=== PATIENT | female | born 1965 | race African-American/Black ===

== ENCOUNTER 2020-08-17 14:08 | Inpatient (IN) | payer BC, OTHER ==
[~2020-08-17] VITALS: Ht 168.9 cm; Wt 124.7 kg
[~2020-08-17 14:08] MED LIST: ATEN50TA PO; B50 PO; DULO60CA44 PO; FLEXERIL PO; FLUT1DIS5 PO; GABA300C PO; HYDR25TA PO; INSU100V28 IJ; LORA5TAB8 PO; MONT10TA21 PO; NOVOLOG FLEX; OXYCONTIN PO; P20 PO; PROAIR; ROFL500T PO; TRAM50TA3 PO; ZOLP5TAB2 PO; [UNRECOGNIZED DRUG - OTHER] TOP
[2020-08-17 16:45] LABS: CHLORIDE 105 mEq/L (98-107)
[2020-08-17 17:14] LABS: EOSINOPHILS % 2.1 % (0.0-5.0); HEMATOCRIT. 35.4 % (36.0-48.0); HEMOGLOBIN. 11.4 g/dL (12.0-16.0); MEAN CORPUSCULAR HEMOGLOBIN 28.9 pg (28.0-32.0); MEAN CORPUSCULAR VOLUME 89.8 fL (81.0-99.0); MEAN PLATELET VOLUME 8.5 fl (7.4-10.4); MONOCYTES % 7.2 % (2.0-8.0); NEUTROPHILS % 49.7 % (40.0-76.0); PLATELET 428 x1000/uL (130-400); RED BLOOD CELL COUNT 3.94 mill/uL (4.2-5.4); RED CELL DISTRIBUTION WIDTH 17.4 % (11.6-14.6)
[2020-08-17] MEDS ORDERED: DIPHENHYDRAMINE 50MG/ML VIAL IM PRN (17:30)
[2020-08-17] MEDS ORDERED: DIPHENHYDRAMINE 50MG CAPSULE PO ONE (17:30)
[2020-08-17] MEDS ORDERED: ONDANSETRON HCL 4MG/2ML INJ IV PRN (18:00)
[2020-08-17] MEDS ORDERED: ACETAMINOPHEN 325MG TABLET PO PRN (18:00)
[2020-08-17] MEDS ORDERED: DOCUSATE SODIUM 100MG CAPSULE PO PRN (18:00)
[2020-08-17] MEDS: ATENOLOL 50 MG TABLET PO SCH (19:30)
[2020-08-17] MEDS: GABAPENTIN 300MG CAPSULE PO SCH (19:30)
[2020-08-17] MEDS: AMLODIPINE 10MG TABLET PO SCH (19:30)
[2020-08-17] MEDS: HYDROCHLOROTHIAZIDE 25MG TABLET PO SCH (19:43)
[2020-08-17] MEDS: MONTELUKAST SODIUM 10MG TABLET PO SCH (19:44)
[2020-08-17 21:40] VITALS: BP 149/93
[2020-08-17 21:45] VITALS: BP 149/93
[2020-08-17] MEDS: ZOLPIDEM TARTRATE 5MG TABLET PO SCH (22:23)
[2020-08-17] MEDS: HYDROMORPHONE HCL/PF 2MG/ML CPJ IV PRN (22:23)
[2020-08-18] VITALS: BP 145/84
[2020-08-18 04:00] VITALS: BP 143/87
[2020-08-18] MEDS ORDERED: DEXTROSE 50% WATER 50ML SYRINGE IV PRN (04:00)
[2020-08-18] MEDS: HYDROMORPHONE HCL/PF 2MG/ML CPJ IV PRN ×4 (04:46→18:32)
[2020-08-18] MEDS: DIPHENHYDRAMINE 50MG/ML VIAL IV PRN ×4 (05:02→20:26)
[2020-08-18] MEDS: INSULIN LISPRO 100 UNITS/ML SUBCUT SCH ×4 (05:48→20:19)
[2020-08-18] MEDS: BLOOD SUGAR DIAGNOSTIC STRIP TEST SCH ×4 (05:48→20:19)
[2020-08-18 07:05] LABS: BASOPHILS % 0.7 % (0.0-2.0); EOSINOPHILS % 2.2 % (0.0-5.0); HEMATOCRIT. 33.1 % (36.0-48.0); MEAN CORPUSCULAR HEMOGLOBIN 29.4 pg (28.0-32.0); MEAN CORPUSCULAR VOLUME 88.9 fL (81.0-99.0); MEAN PLATELET VOLUME 8.8 fl (7.4-10.4); MONOCYTES % 8.2 % (2.0-8.0); NEUTROPHILS % 55.9 % (40.0-76.0); PLATELET 418 x1000/uL (130-400); RED BLOOD CELL COUNT 3.73 mill/uL (4.2-5.4); RED CELL DISTRIBUTION WIDTH 17.2 % (11.6-14.6)
[2020-08-18 07:06] LABS: CHLORIDE 104 mEq/L (98-107)
[2020-08-18 07:18] LABS: HDL CHOLESTEROL 82 mg/dL (40-59)
[2020-08-18 07:19] LABS: LDL CHOLESTEROL 75 mg/dL (5-100)
[2020-08-18 08:00] VITALS: BP 135/75
[2020-08-18] MEDS: ATENOLOL 50 MG TABLET PO SCH (09:00)
[2020-08-18] MEDS: MONTELUKAST SODIUM 10MG TABLET PO SCH (10:45)
[2020-08-18] MEDS: HYDROCHLOROTHIAZIDE 25MG TABLET PO SCH (10:46)
[2020-08-18] MEDS: AMLODIPINE 10MG TABLET PO SCH (10:46)
[2020-08-18] MEDS: DULOXETINE HCL 60MG DR CAPSULE PO SCH (10:46)
[2020-08-18] MEDS: GABAPENTIN 300MG CAPSULE PO SCH ×3 (10:46→18:32)
[2020-08-18] MEDS: FUROSEMIDE 40MG/4ML VIAL IVP SCH (10:50)
[2020-08-18] MEDS: POTASSIUM CHLORIDE 20MEQ TABLET SR PO SCH (10:50)
[2020-08-18 12:00] VITALS: BP 113/80
[2020-08-18 16:00] VITALS: BP 131/83
[2020-08-18 20:00] VITALS: BP 130/85
[2020-08-18] MEDS: ZOLPIDEM TARTRATE 5MG TABLET PO SCH (20:26)
[2020-08-19] VITALS: BP 116/60
[2020-08-19] MEDS: DIPHENHYDRAMINE 50MG/ML VIAL IV PRN ×3 (00:49→10:49)
[2020-08-19] MEDS: HYDROMORPHONE HCL/PF 2MG/ML CPJ IV PRN ×2 (00:49→05:58)
[2020-08-19 04:00] VITALS: BP 96/51
[2020-08-19] MEDS: BLOOD SUGAR DIAGNOSTIC STRIP TEST SCH ×3 (06:13→17:28)
[2020-08-19] MEDS: INSULIN LISPRO 100 UNITS/ML SUBCUT SCH ×3 (06:13→17:28)
[2020-08-19 06:44] LABS: CHLORIDE 105 mEq/L (98-107)
[2020-08-19 08:32] VITALS: BP 121/53
[2020-08-19] MEDS ORDERED: REGADENOSON 0.4 MG/5 ML IV NR (09:00)
[2020-08-19] MEDS ORDERED: LOSARTAN POTASSIUM 25 MG TABLET PO SCH (09:00)
[2020-08-19] MEDS ORDERED: TRIAMTERENE/HYDROCHLOROTHIAZID 75/50MG TABLET PO SCH (09:00)
[2020-08-19 09:13] LABS: BASOPHILS % 0.9 % (0.0-2.0); EOSINOPHILS % 2.7 % (0.0-5.0); HEMATOCRIT. 32.6 % (36.0-48.0); HEMOGLOBIN. 10.6 g/dL (12.0-16.0); LYMPHOCYTES % 40.8 % (20.0-50.0); MEAN CORPUSCULAR HEMOGLOBIN 28.7 pg (28.0-32.0); MEAN CORPUSCULAR VOLUME 88.4 fL (81.0-99.0); MEAN PLATELET VOLUME 8.5 fl (7.4-10.4); MONOCYTES % 7.6 % (2.0-8.0); PLATELET 402 x1000/uL (130-400); RED BLOOD CELL COUNT 3.68 mill/uL (4.2-5.4); RED CELL DISTRIBUTION WIDTH 17.2 % (11.6-14.6)
[2020-08-19] MEDS ORDERED: MAGNESIUM GLUCONATE 500MG TABLET PO SCH (10:00)
[2020-08-19] MEDS: DULOXETINE HCL 60MG DR CAPSULE PO SCH (10:41)
[2020-08-19] MEDS: GABAPENTIN 300MG CAPSULE PO SCH ×3 (10:41→17:22)
[2020-08-19] MEDS: POTASSIUM CHLORIDE 20MEQ TABLET SR PO SCH (10:42)
[2020-08-19] MEDS: FUROSEMIDE 40MG/4ML VIAL IVP SCH (10:43)
[2020-08-19] MEDS: ATENOLOL 50 MG TABLET PO SCH (10:47)
[2020-08-19] MEDS: MONTELUKAST SODIUM 10MG TABLET PO SCH (10:47)
[2020-08-19 12:10] VITALS: BP 131/68
[2020-08-19] MEDS: HYDROCODONE/ACETAMINOPHEN 5/325MG TABLET PO PRN ×2 (13:17→17:23)
[2020-08-19] MEDS ORDERED: LIDOCAINE HCL 1% 20ML VIAL (Pyxis) INJ ONE (13:23)
[2020-08-19] MEDS ORDERED: REGADENOSON 0.4 MG/5 ML IV ONE (14:42)
[2020-08-19] MEDS ORDERED: DIPHENHYDRAMINE 50MG/ML VIAL ONE (15:03)
[2020-08-19] MEDS ORDERED: DIPHENHYDRAMINE 50MG/ML VIAL IV NR (15:15)
[2020-08-19] MEDS ORDERED: FURO-151 MT (16:33)
[2020-08-19] MEDS ORDERED: POTA-9 MT (16:33)
[2020-08-19] MEDS ORDERED: FUROSEMIDE 40MG/4ML VIAL IVP SCH (17:00)
[2020-08-19 17:33] LABS: CLARITY URINE CLEAR (CLEAR); COLOR URINE YELLOW (YELLOW); KETONES URINE NEGATIVE (NEGATIVE); LEUKOCYTE ESTERASE URINE NEGATIVE (NEGATIVE); NITRITE URINE POSITIVE (NEGATIVE); OCCULT BLOOD URINE NEGATIVE (NEGATIVE); PROTEIN URINE NEGATIVE (NEGATIVE); SPECIFIC GRAVITY URINE 1.014 (1.005-1.030); UROBILINOGEN URINE 0.2 E.U./dL (0.2-1.0)
[2020-08-19 17:51] VITALS: BP 133/87
[2020-08-19] MEDS ORDERED: DIPHENHYDRAMINE 50MG CAPSULE PO SCH (20:00)
[2020-08-20] MEDS ORDERED: DIPHENHYDRAMINE 50MG CAPSULE PO SCH
== END 2020-08-19 19:00 | disposition home or self-care (01) | DRG 311 ==
LOC: ER 14:08 → 8WST 16:51 → EDBEDREQ 16:59 → ENRESERV 20:30
PROVIDERS: ADMIT Family Medicine Adult Medicine; ATTEND Family Medicine Adult Medicine
PROC: 02HV33Z Insertion of Infusion Device into Superior Vena Cava, Percutaneous Approach (ICD-10-PCS; principal; 2020-08-19)
PROC: B548ZZA Ultrasonography of Superior Vena Cava, Guidance (ICD-10-PCS; 2020-08-19)
PROC: B5181ZA Fluoroscopy of Superior Vena Cava using Low Osmolar Contrast, Guidance (ICD-10-PCS; 2020-08-19)
DX: I24.9 Acute ischemic heart disease, unspecified (principal); L89.314 Pressure ulcer of right buttock, stage 4; I31.3 Pericardial effusion (noninflammatory); L03.115 Cellulitis of right lower limb; L03.116 Cellulitis of left lower limb; E46 Unspecified protein-calorie malnutrition; Z68.41 Body mass index [BMI] 40.0-44.9, adult; R07.81 Pleurodynia; E11.40 Type 2 diabetes mellitus with diabetic neuropathy, unspecified; I10 Essential (primary) hypertension; S80.821A Blister (nonthermal), right lower leg, initial encounter; Z20.822 Contact with and (suspected) exposure to COVID-19; X58.XXXA Exposure to other specified factors, initial encounter; M79.7 Fibromyalgia; E66.01 Morbid (severe) obesity due to excess calories; E87.6 Hypokalemia; S80.829A Blister (nonthermal), unspecified lower leg, initial encounter; L89.320 Pressure ulcer of left buttock, unstageable; F17.200 Nicotine dependence, unspecified, uncomplicated; Z82.49 Family history of ischemic heart disease and other diseases of the circulatory system; Z86.74 Personal history of sudden cardiac arrest; Y93.89 Activity, other specified; Y92.89 Other specified places as the place of occurrence of the external cause; Y99.8 Other external cause status; Z88.7 Allergy status to serum and vaccine; Z88.6 Allergy status to analgesic agent; Z91.041 Radiographic dye allergy status; Z88.8 Allergy status to other drugs, medicaments and biological substances; Z79.4 Long term (current) use of insulin; Z79.899 Other long term (current) drug therapy; Z93.0 Tracheostomy status
CPT/HCPCS: 36415; 36573; 71045; 78452; 80048; 80053; 80061; 81003; 82040; 82962; 83036; 83735; 83880; 84134; 84484; 85025; 85379; 87426; 93005; 93017; 93306; 93970; 99285; A9500; C1725; C1893; J1170; J1200; J1940; J2785; J3490; U0003

== ENCOUNTER 2020-09-09 07:57 | Emergency (ER) | payer BC ==
[~2020-09-09] VITALS: Ht 170.2 cm; Wt 122.0 kg
[~2020-09-09 07:57] MED LIST changes: +FURO-151 MT; +POTA-9 MT
[2020-09-09] MEDS ORDERED: HYDROCODONE/ACETAMINOPHEN 5/325MG TABLET PO ONE (08:30)
[2020-09-09 10:28] LABS: BASOPHILS % 0.5 % (0.0-2.0); EOSINOPHILS % 1.2 % (0.0-5.0); HEMOGLOBIN. 9.9 g/dL (12.0-16.0); LYMPHOCYTES % 23.8 % (20.0-50.0); MEAN CORPUSCULAR HEMOGLOBIN 29.6 pg (28.0-32.0); MEAN CORPUSCULAR VOLUME 89.3 fL (81.0-99.0); MEAN PLATELET VOLUME 8.1 fl (7.4-10.4); MONOCYTES % 5.1 % (2.0-8.0); NEUTROPHILS % 69.4 % (40.0-76.0); PLATELET 465 x1000/uL (130-400); RED BLOOD CELL COUNT 3.36 mill/uL (4.2-5.4); RED CELL DISTRIBUTION WIDTH 17.3 % (11.6-14.6)
[2020-09-09] MEDS ORDERED: DIPHENHYDRAMINE 50MG/ML VIAL IV ONE (10:30)
[2020-09-09 10:34] LABS: CHLORIDE 106 mEq/L (98-107)
[2020-09-09] MEDS ORDERED: MORPHINE SULFATE 4 MG/ML CPJ (NOT FOR IM USE) IV STA (12:20)
[2020-09-09] MEDS ORDERED: GABA-532 MT (13:16)
[2020-09-09 13:20] VITALS: BP 137/74
== END 2020-09-09 13:20 | disposition home or self-care (01) ==
LOC: ER 07:57
DX: L98.419 Non-pressure chronic ulcer of buttock with unspecified severity (principal); R07.89 Other chest pain; E11.9 Type 2 diabetes mellitus without complications; I10 Essential (primary) hypertension; J45.909 Unspecified asthma, uncomplicated; M79.7 Fibromyalgia; Z93.0 Tracheostomy status; Z88.6 Allergy status to analgesic agent; Z88.8 Allergy status to other drugs, medicaments and biological substances; Z88.7 Allergy status to serum and vaccine; Z91.041 Radiographic dye allergy status
CPT/HCPCS: 12002; 36415; 71045; 80053; 83880; 84484; 85025; 85379; 93005; 96374; 96375; 99285; J1200; J2270; Z7610

== ENCOUNTER 2022-02-07 20:13 | Inpatient (IN) | payer BC ==
[~2022-02-07] VITALS: Ht 182.9 cm; Wt 139.7 kg
[~2022-02-07 20:13] MED LIST changes: -DULO60CA44 PO; +DULO60CA45 PO; +GABA-532 MT; +POTA-202 MT; -POTA-9 MT
[2022-02-07 22:38] LABS: BG BASE EXCESS 1.9 mmol/L (-2.0-2.0); BG CARBOXYHEMOGLOBIN 0.5 % (0.5-1.5); BG DEOXYHEMOGLOBIN 4.8 % (0.0-5.0); BG FRACTION INSPIRED OXYGEN 21; BG HCO3 ACT 27.7 mmol/L (22.0-26.0); BG METHEMOGLOBIN 0.1 % (0.0-1.5); BG OXYGEN SATURATION 95.2 % (92.0-98.5); BG OXYHEMOGLOBIN 94.6 % (94.0-97.0); BG PCO2 48.3 mmHg (35.0-45.0); BG PH 7.376 (7.350-7.450); BG PO2 78.9 mmHg (75.0-100.0); BG SAMPLE SITE RIGHT RADIAL; BG TOTAL HEMOGLOBIN 12.7 g/dL (12.0-18.0); BG VENT MODE ROOM AIR
[2022-02-07 23:39] LABS: BASOPHILS % 0.8 % (0.0-2.0); EOSINOPHILS % 2.1 % (0.0-5.0); HEMOGLOBIN. 12.1 g/dL (12.0-16.0); LYMPHOCYTES % 37.1 % (20.0-50.0); MEAN CORPUSCULAR VOLUME 89.6 fL (81.0-99.0); MEAN PLATELET VOLUME 8.5 fl (7.4-10.4); MONOCYTES % 10.5 % (2.0-8.0); NEUTROPHILS % 49.5 % (40.0-76.0); PLATELET 325 x1000/uL (130-400); RED BLOOD CELL COUNT 4.02 mill/uL (4.2-5.4); RED CELL DISTRIBUTION WIDTH 18.1 % (11.6-14.6)
[2022-02-07 23:46] LABS: CHLORIDE 101 mEq/L (98-107)
[2022-02-08] MEDS ORDERED: MORPHINE SULFATE 4 MG/ML CPJ (NOT FOR IM USE) IV STA (00:21)
[2022-02-08] MEDS ORDERED: ONDANSETRON HCL 4MG/2ML INJ IV STA (00:21)
[2022-02-08] MEDS ORDERED: ASPIRIN 81MG TABLET PO ONE (00:30)
[2022-02-08] MEDS ORDERED: METHYLPREDNISOLONE SOD SUCC 125 MG/2 ML VIAL IV STA (01:36)
[2022-02-08] MEDS ORDERED: DIPHENHYDRAMINE 50MG/ML VIAL IV ONE (01:45)
[2022-02-08 08:00] VITALS: BP 157/79
[2022-02-08] MEDS ORDERED: CETI10CA2 MT (08:58)
[2022-02-08] MEDS ORDERED: PREG75CA MT (08:58)
[2022-02-08] MEDS ORDERED: HYDR-4350 MT (08:58)
[2022-02-08] MEDS ORDERED: ENOXAPARIN 40MG/0.4ML SYR SUBCUT SCH (09:00)
[2022-02-08] MEDS ORDERED: DIPHENHYDRAMINE 25MG CAPSULE PO PRN (09:00)
[2022-02-08] MEDS ORDERED: DEXTROSE 50% WATER 50ML SYRINGE IV PRN (09:00)
[2022-02-08] MEDS ORDERED: NALOXONE HCL 0.4MG/ML VIAL IV PRN (09:15)
[2022-02-08] MEDS: ENOXAPARIN 30MG/0.3ML SYR SUBCUT SCH ×2 (09:57→22:16)
[2022-02-08 12:00] VITALS: BP 136/69
[2022-02-08] MEDS: INSULIN LISPRO 100 UNITS/ML SUBCUT SCH ×3 (12:10→21:00)
[2022-02-08 12:29] LABS: BASOPHILS % 0.1 % (0.0-2.0); EOSINOPHILS % 0.1 % (0.0-5.0); HEMATOCRIT. 38.6 % (36.0-48.0); HEMOGLOBIN. 12.6 g/dL (12.0-16.0); LYMPHOCYTES % 20.1 % (20.0-50.0); MEAN CORPUSCULAR HEMOGLOBIN 29.4 pg (28.0-32.0); MEAN CORPUSCULAR VOLUME 89.7 fL (81.0-99.0); MEAN PLATELET VOLUME 9.1 fl (7.4-10.4); NEUTROPHILS % 78.7 % (40.0-76.0); PLATELET 326 x1000/uL (130-400); RED CELL DISTRIBUTION WIDTH 18.4 % (11.6-14.6)
[2022-02-08] MEDS: BLOOD SUGAR DIAGNOSTIC STRIP TEST SCH ×3 (12:33→21:00)
[2022-02-08 12:54] LABS: CHLORIDE 101 mEq/L (98-107)
[2022-02-08 13:44] VITALS: BP 157/79
[2022-02-08] MEDS ORDERED: METHYLPREDNISOLONE SOD SUCC 40 MG/ML VIAL IV NR (14:15)
[2022-02-08] MEDS: FUROSEMIDE 40MG/4ML VIAL IVP SCH (14:28)
[2022-02-08] MEDS ORDERED: DIPHENHYDRAMINE 50MG/ML VIAL IV NR (14:45)
[2022-02-08] MEDS: HYDROCODONE/ACETAMINOPHEN 5/325MG TABLET PO PRN ×2 (15:01→23:11)
[2022-02-08 16:00] VITALS: BP 147/79
[2022-02-08 20:00] VITALS: BP 142/81
[2022-02-08] MEDS: DIPHENHYDRAMINE 50MG/ML VIAL IV PRN (22:15)
[2022-02-08] MEDS: FAMOTIDINE 20MG/2ML VIAL IV SCH (22:16)
[2022-02-09] VITALS: BP 132/65
[2022-02-09 04:00] VITALS: BP 140/78
[2022-02-09] MEDS: BLOOD SUGAR DIAGNOSTIC STRIP TEST SCH ×4 (06:40→21:21)
[2022-02-09 08:00] VITALS: BP 170/87
[2022-02-09] MEDS: FAMOTIDINE 20MG/2ML VIAL IV SCH ×2 (08:55→21:24)
[2022-02-09] MEDS: FUROSEMIDE 40MG/4ML VIAL IVP SCH (08:55)
[2022-02-09] MEDS: ENOXAPARIN 30MG/0.3ML SYR SUBCUT SCH ×2 (08:56→21:24)
[2022-02-09] MEDS ORDERED: AMLODIPINE 10MG TABLET PO SCH (09:00)
[2022-02-09] MEDS ORDERED: LOSARTAN POTASSIUM 25 MG TABLET PO SCH (09:00)
[2022-02-09] MEDS: DIPHENHYDRAMINE 50MG/ML VIAL IV PRN (09:16)
[2022-02-09 12:00] VITALS: BP 152/70
[2022-02-09] MEDS: INSULIN LISPRO 100 UNITS/ML SUBCUT SCH ×3 (12:10→21:00)
[2022-02-09 13:30] LABS: BASOPHILS % 0.4 % (0.0-2.0); EOSINOPHILS % 0.2 % (0.0-5.0); HEMOGLOBIN. 12.7 g/dL (12.0-16.0); LYMPHOCYTES % 15.9 % (20.0-50.0); MEAN CORPUSCULAR VOLUME 90.1 fL (81.0-99.0); MEAN PLATELET VOLUME 9.5 fl (7.4-10.4); MONOCYTES % 7.2 % (2.0-8.0); NEUTROPHILS % 76.3 % (40.0-76.0); PLATELET 318 x1000/uL (130-400); RED BLOOD CELL COUNT 4.22 mill/uL (4.2-5.4); RED CELL DISTRIBUTION WIDTH 18.8 % (11.6-14.6)
[2022-02-09 14:03] LABS: CHLORIDE 96 mEq/L (98-107)
[2022-02-09 16:00] VITALS: BP 137/78
[2022-02-09] MEDS ORDERED: MAGNESIUM 2 G PREMIX 50 ML IV NR (16:30)
[2022-02-09 16:34] LABS: *AMPHETAMINES SCREEN URINE NEGATIVE (NEGATIVE); *BARBITURATES SCREEN URINE NEGATIVE (NEGATIVE); *BENZODIAZEPINES SCREEN URINE NEGATIVE (NEGATIVE); *COCAINE SCREEN URINE NEGATIVE (NEGATIVE); CANNABINOID URINE SCREEN NEGATIVE (NEGATIVE); METHADONE URINE SCREEN NEGATIVE (NEGATIVE); OPIATES URINE SCREEN PRESUMTIVE POSITIVE (NEGATIVE); PHENCYCLIDINE URINE SCREEN NEGATIVE (NEGATIVE)
[2022-02-09] MEDS ORDERED: FUROSEMIDE 40MG/4ML VIAL IVP SCH (17:15)
[2022-02-09] MEDS: HYDROCODONE/ACETAMINOPHEN 5/325MG TABLET PO PRN (17:28)
[2022-02-09 20:00] VITALS: BP 136/67
[2022-02-09] MEDS ORDERED: ATORVASTATIN CALCIUM 20MG TABLET PO SCH (21:00)
[2022-02-09] MEDS ORDERED: PREDNISONE 20MG TABLET PO SCH (21:15)
[2022-02-09] MEDS ORDERED: DIPHENHYDRAMINE 50MG/ML VIAL IV NR (21:45)
[2022-02-10] VITALS: BP 115/78
[2022-02-10 04:00] VITALS: BP 142/82
[2022-02-10] MEDS: HYDROCODONE/ACETAMINOPHEN 5/325MG TABLET PO PRN (04:27)
[2022-02-10 04:32] VITALS: BP 142/82
[2022-02-10] MEDS: BLOOD SUGAR DIAGNOSTIC STRIP TEST SCH (06:42)
[2022-02-10] MEDS: INSULIN LISPRO 100 UNITS/ML SUBCUT SCH (06:58)
[2022-02-10] MEDS ORDERED: MAGNESIUM OXIDE 400MG TABLET PO NR (08:30)
== END 2022-02-10 08:45 | disposition home or self-care (01) | DRG 291 ==
LOC: ER 20:13 → EDBEDREQ 02-08 00:41 → MICUSO 02-08 01:38 → EDBEDREQ 02-08 01:59 → 7EST 02-08 07:31
PROVIDERS: ADMIT Family Medicine Adult Medicine; ATTEND Family Medicine Adult Medicine
DX: I11.0 Hypertensive heart disease with heart failure (principal); I50.33 Acute on chronic diastolic (congestive) heart failure; Z68.41 Body mass index [BMI] 40.0-44.9, adult; D84.1 Defects in the complement system; Z20.822 Contact with and (suspected) exposure to COVID-19; E11.65 Type 2 diabetes mellitus with hyperglycemia; E66.01 Morbid (severe) obesity due to excess calories; J45.909 Unspecified asthma, uncomplicated; E78.5 Hyperlipidemia, unspecified; R06.89 Other abnormalities of breathing; E78.00 Pure hypercholesterolemia, unspecified; Z79.899 Other long term (current) drug therapy; Z88.8 Allergy status to other drugs, medicaments and biological substances; Z93.0 Tracheostomy status; Z86.74 Personal history of sudden cardiac arrest; Z91.041 Radiographic dye allergy status
CPT/HCPCS: 36415; 36600; 71045; 80048; 80053; 80061; 80305; 82375; 82805; 82962; 83036; 83735; 83880; 84484; 85025; 87426; 93005; 93306; 97110; 97140; 99285; J1200; J1650; J1815; J1940; J2270; J2405; J2920; J2930; J3475; J3490; J7512; Q0163

== ENCOUNTER 2024-01-26 00:38 | Emergency (ER) | payer BC ==
[~2024-01-26] VITALS: Ht 165.1 cm; Wt 125.0 kg
[~2024-01-26 00:38] MED LIST changes: +CETI10CA2 MT; +CLON-493 PO; -FLEXERIL PO; -GABA-532 MT; +HYDR-4001 MT; -HYDR25TA PO; +MONT-46 PO; -MONT10TA21 PO; -NOVOLOG FLEX; -OXYCONTIN PO; -POTA-202 MT; +PREG75CA MT; -[UNRECOGNIZED DRUG - OTHER] TOP
[2024-01-26 00:40] VITALS: TEMP 98.3
[2024-01-26 01:44] LABS: BASOPHILS % 0.7 % (0.0-2.0); EOSINOPHILS % 0.5 % (0.0-5.0); HEMATOCRIT. 36.1 % (36.0-48.0); HEMOGLOBIN. 11.5 g/dL (12.0-16.0); LYMPHOCYTES % 13.2 % (20.0-50.0); MEAN CORPUSCULAR HEMOGLOBIN 27.4 pg (28.0-32.0); MEAN CORPUSCULAR HGB CONC 31.9 g/dL (31.0-37.0); MEAN CORPUSCULAR VOLUME 85.8 fL (81.0-99.0); MEAN PLATELET VOLUME 8.6 fl (7.4-10.4); MONOCYTES % 3.8 % (2.0-8.0); NEUTROPHILS % 81.8 % (40.0-76.0); PLATELET 147 x1000/uL (130-400); RED BLOOD CELL COUNT 4.21 mill/uL (4.2-5.4); RED CELL DISTRIBUTION WIDTH 18.4 % (11.6-14.6); WHITE BLOOD COUNT 6.1 x1000/uL (4.5-11.0)
[2024-01-26 01:54] LABS: CHLORIDE 102 mEq/L (98-107); SODIUM 139 mEq/L (136-145)
[2024-01-26 01:55] LABS: CALCIUM 9.2 mg/dL (8.7-10.4); CARBON DIOXIDE 29 mEq/L (21-32)
[2024-01-26 02:00] LABS: CREATININE 0.8 mg/dL (0.6-1.0); GLUCOSE 119 mg/dL (70-105); UREA NITROGEN BLOOD 6 mg/dL (9-23)
[2024-01-26] MEDS ORDERED: POTASSIUM CHLORIDE 20MEQ/PACKET PO ONE (02:30)
[2024-01-26] MEDS: ALBUTEROL (0.083%) 2.5MG/3ML NEB HHN ONE ×2 (03:30→03:52)
[2024-01-26 03:49] VITALS: PULSE 88; RESP 18; O2SAT 95
[2024-01-26] MEDS: POTASSIUM CHLORIDE 20MEQ/PACKET PO NR (06:54)
[2024-01-26] MEDS ORDERED: DIPHENHYDRAMINE 50MG CAPSULE PO ONE (07:30)
[2024-01-26] MEDS: MORPHINE SULFATE 4 MG/ML INJ (FOR IV/IM USE) IV ONE (07:57)
[2024-01-26] MEDS: DIPHENHYDRAMINE 25MG CAPSULE PO NR (07:57)
[2024-01-26 10:30] VITALS: BP 141/89; PULSE 88; RESP 19; O2SAT 99
== END 2024-01-26 13:32 | disposition home or self-care (01) ==
LOC: ER 00:39
DX: R06.03 Acute respiratory distress (principal); R05.9 Cough, unspecified; J45.909 Unspecified asthma, uncomplicated; I50.9 Heart failure, unspecified; I11.0 Hypertensive heart disease with heart failure; E11.9 Type 2 diabetes mellitus without complications; E78.00 Pure hypercholesterolemia, unspecified; Z79.899 Other long term (current) drug therapy; Z88.7 Allergy status to serum and vaccine; Z98.890 Other specified postprocedural states
CPT/HCPCS: 80048; 85025; 36415; 71045; 94640; 96374; 99285; Q0163; J2270; Z7610 ×3